=== PATIENT | female | born 1975 | race African-American/Black ===

== ENCOUNTER 2018-03-07 07:02 | Inpatient (IN) | payer MEDICAID ==
[~2018-03-07] VITALS: Ht 157.5 cm; Wt 86.6 kg
[2018-03-07 08:00] VITALS: BP 101/70
--- NOTE | 2018-03-07 08:03 | NUR ---
PAVING RAMMERMACHINIST APPRENTICE NOTES RECEIVED PT FROM [facility] IN STABLE CONDITION. PT TRANSPORTED VIA AMBULANCE. PT IS A/O X3. NO SOB OR ACUTE SIGNS OF DISTRESS NOTED. BILATERAL CHEST RISE AND FALL NOTED. SHE DENIES ANY PAIN. WARD CATHETER NOTED TO BE DRAINING CLEAR, YELLOW URINE TO GRAVITY. IV TO LEFT AC NOTED TO BE PATENT AND INTACT. NO REDNESS OR SIGNS OF INFILTRATION NOTED. GTUBE NOTED AND PLACEMENT VERIFIED VIA AUSCULTATION. PT ORIENTED TO ROOM AND USE OF CALL LIGHT. BED IN LOW LOCKED POSITION, SIDE RAILS UP X3, CALL LIGHT WITHIN PT'S REACH. DR MARTINEZ NOTIFIED OF ADMISSION AND ORDERS. WILL BEGIN ADMISSION PROCESS AND SOFIA Addendum: 03/07/18 at 0813 by ELIZABETH MANJARREZ RN PT SR ON THE TELE MONITOR WITH A HR OF 95
[2018-03-07] MEDS ORDERED: LISI40TA4 GT (10:53)
[2018-03-07] MEDS ORDERED: HEPA50008 SQ (10:53)
[2018-03-07] MEDS ORDERED: AMLO5TAB7 GT (10:53)
[2018-03-07] MEDS ORDERED: LABE300T2 GT (10:53)
[2018-03-07] MEDS ORDERED: ATOR40TA GT (10:53)
[2018-03-07] MEDS ORDERED: FERR325T23 GT (10:53)
[2018-03-07] MEDS ORDERED: IPRA3AMP23 IH (10:53)
[2018-03-07] MEDS ORDERED: HYDR-4077 GT (10:53)
[2018-03-07] MEDS ORDERED: METO5SOL20 GT (10:53)
[2018-03-07] MEDS ORDERED: LEVE500S9 GT (10:53)
[2018-03-07] MEDS ORDERED: LACT-209 GT (10:53)
[2018-03-07] MEDS ORDERED: ALPR0.5T8 GT (10:53)
[2018-03-07] MEDS ORDERED: MAG HYDROX/AL HYDROX/SIMETH 30 ML UDC PO PRN (11:30)
[2018-03-07] MEDS ORDERED: Z GUARD REMEDY 2 OZ OINT TP PRN (11:30)
[2018-03-07] MEDS ORDERED: ACETAMINOPHEN 325 MG TABLET PO PRN (11:30)
[2018-03-07] MEDS ORDERED: METOCLOPRAMIDE HCL 5 MG/5 ML UDC PO PRN (11:30)
[2018-03-07] MEDS ORDERED: ZOLPIDEM TARTRATE 5 MG TABLET PO PRN (11:30)
[2018-03-07] MEDS ORDERED: ONDANSETRON HCL/PF 4 MG/2 ML VIAL IVP PRN (11:30)
[2018-03-07] MEDS: LABETALOL HCL (100MG) 100 MG TABLET PO SCH ×2 (12:00→17:33)
[2018-03-07] MEDS: hydrALAZINE HCL 50 MG TABLET GT SCH ×3 (12:34→21:00)
[2018-03-07] MEDS: LEVETIRACETAM SOL (5 ML) 100 MG/ML UDC PO SCH ×2 (12:42→22:20)
[2018-03-07] MEDS: IV NS 0.9% 1,000 ML IV PRN (12:42)
[2018-03-07] MEDS: HEPARIN SODIUM, PORCINE 5000 UNITS/1 ML VIAL SQ SCH ×2 (12:48→22:22)
[2018-03-07] MEDS: CEFTRIAXONE 1 G in IV D5W 50 ML IV SCH (14:27)
[2018-03-07 16:00] VITALS: BP 117/72
[2018-03-07] MEDS ORDERED: INSULIN REGULAR, HUMAN 100 UNIT/ML 3 ML VIAL SQ PRN (16:00)
[2018-03-07] MEDS ORDERED: DEXTROSE 50%-WATER 50 ML DISP.SYRIN IV PRN (16:00)
[2018-03-07] MEDS: JEVITY 1.2 CAL 1,000 ML BOTTLE GT PRN (16:29)
[2018-03-07] MEDS: BLOOD SUGAR DIAGNOSTIC 1 EACH STRIP IN SCH (17:30)
--- NOTE | 2018-03-07 18:21 | NUR ---
MS RN CLOSING NOTES PT REMAINS STABLE SINCE ADMISSION. VITALS STABLE THROUGHOUT SHIFT. ALL NEEDS ANTICIPATED FOR AND MET. ALL DUE MEDS GIVEN. IV REMAINS PATENT AND INTACT. PT CONTINUE TO TOLERATE NS INFUSION WELL. PT TOLERATING GTUBE FEEDINGS WELL AND ORDERED RATE. NO RESIDUALS ASPIRATED AT THIS TIME. WARD CATHETER REMAINS PATENT AND INTACT., PT HAD A TOTAL OF 1200CC THROUGHOUT SHIFT. PRN CARE RENDERED. PT REPOSITIONED AND TURNED PER PROTOCOL. SAFETY MEASURES REMAIN IN PLACE. WILL ENDORSE TO NIGHTSHIFT NURSE FOR SOFIA
[2018-03-07] MEDS: HYDROCODONE/APAP 5/325MG 1 EACH TABLET PO PRN (18:48)
--- NOTE | 2018-03-07 19:25 | NUR ---
MS RN OPENING NOTES PT REMAINS STABLE SINCE ADMISSION. VITALS STABLE THROUGHOUT SHIFT. ALL NEEDS ANTICIPATED FOR AND MET. ALL DUE MEDS GIVEN. IV REMAINS PATENT AND INTACT. PT CONTINUE TO TOLERATE NS INFUSION WELL. PT TOLERATING GTUBE FEEDINGS WELL AND ORDERED RATE. NO RESIDUALS ASPIRATED AT THIS TIME. WARD CATHETER REMAINS PATENT AND INTACT., PT HAD A TOTAL OF 1200CC THROUGHOUT SHIFT. PRN CARE RENDERED. PT REPOSITIONED AND TURNED PER PROTOCOL. SAFETY MEASURES REMAIN IN PLACE. WILL ENDORSE TO NIGHTSAZFT NURSE FOR SOFIA RECEIVED PT IN BED, AWAKE, A/O X 4 ,WITH EPISODES OF FORGETFULNESS, VERBALLY RESPONSIVE. NO DISTRESS. NO SOB NOTED. RESPIRATION IS EVEN AND UNLABORED. IV SITE ON LAC INTACT AND PATENT, NO S/S OF INFILTRATION NOTED. IVF INFUSING WELL. GT IS INTACT AND PATENT, NOTED WITH 40CC RESIDUAL. GTF ALLEY WELL. ASPIRATION PRECAUTION OBSERVED. FC IS INTACT AND PATENT, DRAINING WELL WITH YELLOW URINE, NO HEMATURIA NOTED. NO S/S OF HYPO/ HYPERGLYCEMIA NOTED. ALL NEEDS ATTENDED AND MET. KEPT COMFORTABLE. CALL LIGHT WITHIN REACH.SAFETY AND SEIZURE PRECAUTION OBSERVED. WILL CONT TO MONITOR. Addendum: 03/07/18 at 2305 by HILLARY ORELLANA RN INCORRECT DOCUMENTATION
[2018-03-07 20:00] VITALS: BP 114/65
[2018-03-07 20:13] LABS: APPEARANCE,URINE SL CLOUDY (CLEAR); BILIRUBIN,URINE NEGATIVE (NEGATIVE); BLOOD, URINE NEGATIVE Ery/uL (NEGATIVE); COLOR,URINE YELLOW (YELLOW); KETONES,URINE NEGATIVE (NEGATIVE); LEUKOCYTE ESTERASE ,URINE 1+ (NEGATIVE); NITRITE, URINE NEGATIVE (NEGATIVE); PH,URINE 6.5 (5.0-8.0); PROTEIN,URINE NEGATIVE (NEGATIVE); UGLUCOSE NEGATIVE (NEGATIVE); UROBILINOGEN,URINE 0.2 EU/dL (0.2)
[2018-03-07 20:17] LABS: BACTERIA,URINE Rare /HPF (None Seen); RBC,URINE 0-2 /HPF (0-2); SQUAMOUS EPITHELIAL CELL,UR Few /HPF (None Seen)
--- NOTE | 2018-03-07 22:00 | NUR ---
RELAYED ABNORMAL PRELIMINARY BLOOD CULTURE RESULT TO DR. MARTINEZ , PT IS ON ROCEPHIN IV, WITH NNO AT THIS TIME.
[2018-03-07] MEDS: ALPRAZOLAM 0.5 MG TABLET GT SCH (22:20)
[2018-03-07] MEDS: ATORVASTATIN 40 MG TABLET GT SCH (22:20)
[2018-03-08] MEDS: BLOOD SUGAR DIAGNOSTIC 1 EACH STRIP IN SCH ×5 (00:11→23:40)
[2018-03-08] MEDS: IV NS 0.9% 1,000 ML IV PRN ×2 (04:42→17:30)
[2018-03-08] MEDS: LABETALOL HCL (100MG) 100 MG TABLET PO SCH ×5 (05:48→23:44)
--- NOTE | 2018-03-08 06:40 | NUR ---
MS RN CLOSING NOTES PT IN BED, RESTING COMFORTABLY IN BED, AROUSES EASILY, A/O X 4 ,WITH EPISODES OF FORGETFULNESS, VERBALLY RESPONSIVE. NO DISTRESS. NO SOB NOTED. RESPIRATION IS EVEN AND UNLABORED. IV SITE ON LAC INTACT AND PATENT, NO S/S OF INFILTRATION NOTED. IVF INFUSING WELL. GT IS INTACT AND PATENT, GTF ALLEY WELL. ASPIRATION PRECAUTION OBSERVED. FC IS INTACT AND PATENT, DRAINING WELL WITH YELLOW URINE, NO HEMATURIA NOTED. NO S/S OF HYPO/ HYPERGLYCEMIA NOTED. ALL NEEDS ATTENDED AND MET. KEPT COMFORTABLE. CALL LIGHT WITHIN REACH.SAFETY AND SEIZURE PRECAUTION OBSERVED. WILL ENDORSE TO NEXT SHIFT ACCORDINGLY FOR SOFIA.
[2018-03-08 07:30] LABS: BASOPHILS % (AUTO) 0.6 % (0.0-2.0); EOSINOPHILS % (AUTO) 3.7 % (0.0-6.0); HEMATOCRIT 31 % (33-45); HEMOGLOBIN 10.3 g/dL (11.5-14.8); LYMPHOCYTES # (AUTO) 1.9 /CMM (0.8-4.8); MEAN CORPUSCULAR HGB CONC 34 g/dl (31.0-36.0); MEAN CORPUSCULAR VOLUME 91 fL (82-100); MONOCYTES # (AUTO) 0.4 /CMM (0.1-1.30); MONOCYTES % (AUTO) 7.7 % (2.0-12.0); NEUTROPHILS # (AUTO) 2.6 /CMM (1.8-8.9); PLATELET COUNT (AUTO) 205 /CMM (150-450); RED BLOOD CELL COUNT(AUTO) 3.38 MIL/uL (4.0-5.2); WHITE BLOOD COUNT (AUTO) 5.2 K/uL (4.3-11.0)
[2018-03-08 07:42] LABS: CALCIUM, SERUM 9.6 mg/dL (8.5-10.1); CREATININE 0.9 mg/dL (0.6-1.3); MAGNESIUM 1.9 mg/dL (1.8-2.4); PHOSPHORUS 4.2 mg/dL (2.5-4.9); POTASSIUM 4.3 mmol/L (3.5-5.1)
--- NOTE | 2018-03-08 07:42 | NUR ---
MS VOGTDIESEL ENGINE ASSEMBLER NOTES RECEIVED PT FROM [facility] IN STABLE CONDITION. IS A/O X3 WITH PERIODS OF CONFUSION. NO SOB OR ACUTE SIGNS OF DISTRESS NOTED. BILATERAL CHEST RISE AND FALL NOTED. SHE DENIES ANY PAIN. WARD CATHETER NOTED TO BE DRAINING CLEAR, YELLOW URINE TO GRAVITY. IV TO LEFT AC NOTED TO BE PATENT AND INTACT. NO REDNESS OR SIGNS OF INFILTRATION NOTED. GTUBE NOTED AND PLACEMENT VERIFIED VIA AUSCULTATION. NO RESIDUALS ASPIRATED AT THIS TIME. PT TOLERATING FEEDING WELL @ 60ML/HR ORDERED. BED IN LOW LOCKED POSITION, SIDE RAILS UP X3, CALL LIGHT WITHIN PT'S REACH. DR MARTINEZ NOTIFIED OF ADMISSION AND ORDERS. WILL BEGIN ADMISSION PROCESS AND SOFIA Addendum: 03/08/18 at 1845 by ELIZABETH MANJARREZ RN * OPENING NOTES
[2018-03-08 08:00] VITALS: BP 119/77
[2018-03-08] MEDS: hydrALAZINE HCL 50 MG TABLET GT SCH ×4 (09:00→21:00)
[2018-03-08] MEDS: LISINOPRIL (20MG) 20 MG TABLET PO SCH (09:00)
[2018-03-08] MEDS: HEPARIN SODIUM, PORCINE 5000 UNITS/1 ML VIAL SQ SCH ×2 (09:10→21:35)
[2018-03-08] MEDS: AMLODIPINE BESYLATE 5 MG TABLET GT SCH (09:13)
[2018-03-08] MEDS: LEVETIRACETAM SOL (5 ML) 100 MG/ML UDC PO SCH ×2 (09:13→21:34)
[2018-03-08] MEDS: FERROUS SULFATE (325 MG) 325 MG/TAB TABLET GT SCH (09:13)
[2018-03-08] MEDS: CEFTRIAXONE 1 G in IV D5W 50 ML IV SCH (12:31)
[2018-03-08] MEDS: JEVITY 1.2 CAL 1,000 ML BOTTLE GT PRN (12:39)
[2018-03-08 16:00] VITALS: BP 128/60
[2018-03-08] MEDS: HYDROCODONE/APAP 5/325MG 1 EACH TABLET PO PRN (17:30)
--- NOTE | 2018-03-08 18:45 | NUR ---
MS RN CLOSING NOTES PT REMAINS STABLE. ALL NEEDS ANTICIPATED FOR AND MET. ALL DUE MEDS GIVEN. IV REMAINS PATENT AND INTACT. PT CONTINUES TO TOLERATE NS INFUSION WELL. PT TOLERATING GTUBE FEEDINGS WELL AND ORDERED RATE. NO RESIDUALS ASPIRATED AT THIS TIME. WARD CATHETER REMAINS PATENT AND INTACT., PT HAD A TOTAL OF 1600CC OUTPUT THROUGHOUT SHIFT. PRN CARE RENDERED. PT REPOSITIONED AND TURNED PER PROTOCOL. SAFETY MEASURES REMAIN IN PLACE. WILL ENDORSE TO NIGHTSHIFT NURSE FOR SOFIA
--- NOTE | 2018-03-08 19:10 | NUR ---
MS RN OPENING NOTES RECEIVED PT IN BED, AWAKE, A/O X 4 ,WITH EPISODES OF FORGETFULNESS, VERBALLY RESPONSIVE. NO DISTRESS. NO SOB NOTED. RESPIRATION IS EVEN AND UNLABORED. IV SITE ON LAC INTACT AND PATENT, NO S/S OF INFILTRATION NOTED. IVF INFUSING WELL. GT IS INTACT AND PATENT, NOTED WITH RESIDUAL OF 30 CC, GTF ALLEY WELL. ASPIRATION PRECAUTION OBSERVED. FC IS INTACT AND PATENT, DRAINING WELL WITH YELLOW URINE, FC SECURED WITH STAT LOCK. NO HEMATURIA NOTED. NO S/S OF HYPO/ HYPERGLYCEMIA NOTED. ALL NEEDS ATTENDED AND MET. KEPT COMFORTABLE. CALL LIGHT WITHIN REACH.SAFETY AND SEIZURE PRECAUTION OBSERVED. WILL CONT TO MONITOR.
[2018-03-08 20:00] VITALS: BP 116/66
[2018-03-08] MEDS: ALPRAZOLAM 0.5 MG TABLET GT SCH (21:34)
[2018-03-08] MEDS: ATORVASTATIN 40 MG TABLET GT SCH (21:34)
[2018-03-09] MEDS: HYDROCODONE/APAP 5/325MG 1 EACH TABLET PO PRN ×2 (04:58→11:58)
--- NOTE | 2018-03-09 04:58 | NUR ---
MS RN NOTES PAIN MANAGEMENT C/O PAIN VIA RIGHT LEG 5/10 ON PAIN SCALE,MEDICATED WITH NORCO 5/325MG,1 TAB GIVEN/GT.WILL MONITOR FOR RELIEF.
[2018-03-09] MEDS: BLOOD SUGAR DIAGNOSTIC 1 EACH STRIP IN SCH ×2 (05:26→12:04)
[2018-03-09] MEDS: LABETALOL HCL (100MG) 100 MG TABLET PO SCH ×2 (05:42→12:37)
[2018-03-09] MEDS: IV NS 0.9% 1,000 ML IV PRN (05:53)
--- NOTE | 2018-03-09 06:40 | NUR ---
MS RN CLOSING NOTES PT IN BED, ASLEEP AT THIS TIME, AROUSES EASILY, A/O X 4 ,WITH EPISODES OF FORGETFULNESS, VERBALLY RESPONSIVE. NO DISTRESS. NO SOB NOTED. RESPIRATION IS EVEN AND UNLABORED. IV SITE ON LAC INTACT AND PATENT, NO S/S OF INFILTRATION NOTED. IVF INFUSING WELL. GT IS INTACT AND PATENT, NOTED WITH RESIDUAL OF 30 CC, GTF ALLEY WELL. ASPIRATION PRECAUTION OBSERVED. FC IS INTACT AND PATENT, DRAINING WELL WITH YELLOW URINE, NO HEMATURIA NOTED. NO S/S OF HYPO/ HYPERGLYCEMIA NOTED. ALL NEEDS ATTENDED AND MET. KEPT COMFORTABLE. CALL LIGHT WITHIN REACH.SAFETY AND SEIZURE PRECAUTION OBSERVED. WILL ENDORSE TO NEXT SHIFT FOR SOFIA.
--- NOTE | 2018-03-09 07:20 | NUR ---
MS RN OPENING NOTES PATIENT RECEIVED ASLEEP IN BED, EASILY AROUSABLE. ON ROOM AIR, BREATHING EVEN AND UNLABORED. IV ACCESS ON LAC INTACT AND PATENT, IVF OF NS @ 75ML/HR INFUSING WELL, NO S/S OF INFILTRATIONS NOTED. G-TUBE IN PLACE AND PATENT WITH FEEDING OF JEVITY 1.2 @ 60ML/HR IN PROGRESS AND TOLERATING WELL. ASPIRATION PRECAUTIONS MAINTAINED. WARD INTACT AND PATENT, DRAINING CLEAR YELLOW URINE OUTPUT. ALL SAFETY MEASURES IN PLACE. BED IN LOW/LOCKED POSITION WITH SR UP X2. CALL LIGHT WITHIN REACH. WILL CONT TO MONITOR.
[2018-03-09] MEDS: FERROUS SULFATE (325 MG) 325 MG/TAB TABLET GT SCH (08:03)
[2018-03-09] MEDS: AMLODIPINE BESYLATE 5 MG TABLET GT SCH (08:03)
[2018-03-09] MEDS: LEVETIRACETAM SOL (5 ML) 100 MG/ML UDC PO SCH (08:04)
[2018-03-09] MEDS: LISINOPRIL (20MG) 20 MG TABLET PO SCH (08:04)
[2018-03-09] MEDS: HEPARIN SODIUM, PORCINE 5000 UNITS/1 ML VIAL SQ SCH (08:05)
[2018-03-09] MEDS: hydrALAZINE HCL 50 MG TABLET GT SCH ×2 (08:05→12:36)
[2018-03-09 08:31] VITALS: BP 122/71
[2018-03-09 08:35] LABS: BASOPHILS % (AUTO) 0.5 % (0.0-2.0); EOSINOPHILS % (AUTO) 2.9 % (0.0-6.0); HEMATOCRIT 30 % (33-45); HEMOGLOBIN 9.7 g/dL (11.5-14.8); LYMPHOCYTES # (AUTO) 2.1 /CMM (0.8-4.8); LYMPHOCYTES % (AUTO) 38.8 % (20.0-44.0); MEAN CORPUSCULAR HGB CONC 33 g/dl (31.0-36.0); MEAN CORPUSCULAR VOLUME 91 fL (82-100); MONOCYTES # (AUTO) 0.4 /CMM (0.1-1.30); MONOCYTES % (AUTO) 6.9 % (2.0-12.0); NEUTROPHILS # (AUTO) 2.7 /CMM (1.8-8.9); NEUTROPHILS % (AUTO) 50.9 % (43.0-81.0); PLATELET COUNT (AUTO) 208 /CMM (150-450); RED BLOOD CELL COUNT(AUTO) 3.24 MIL/uL (4.0-5.2); WHITE BLOOD COUNT (AUTO) 5.3 K/uL (4.3-11.0)
[2018-03-09 08:56] LABS: CALCIUM, SERUM 9.4 mg/dL (8.5-10.1); CREATININE 0.9 mg/dL (0.6-1.3); MAGNESIUM 1.6 mg/dL (1.8-2.4); PHOSPHORUS 4.7 mg/dL (2.5-4.9); POTASSIUM 4.5 mmol/L (3.5-5.1)
[2018-03-09] MEDS ORDERED: CEPH-570 PO (09:23)
[2018-03-09] MEDS ORDERED: MAGNESIUM OXIDE 400 MG TABLET PO ONE (09:30)
[2018-03-09] MEDS: JEVITY 1.2 CAL 1,000 ML BOTTLE GT PRN (11:30)
--- NOTE | 2018-03-09 12:05 | NUR ---
RN NOTES/PAIN MANAGEMENT PT C/O PAIN ON HER LEFT ARM WITH SCALE OF 6/10, PRN NORCO 5/325MG ADMINISTERED VIA GTUBE. WILL CONTINUE TO MONITOR
[2018-03-09 12:37] VITALS: BP 121/78
--- NOTE | 2018-03-09 12:55 | NUR ---
RN NOTES PATIENT FOR DISCHARGE TODAY. CALLED AND REPORT GIVEN TO SHAY FALCON OF [facility] AND SAID THAT PT WILL GO TO ROOM # 3. DAUGHTER CONNER CALLED AND INFORMED OF PT'S DISCHARGE TO [facility].
[2018-03-09] MEDS: CEFTRIAXONE 1 G in IV D5W 50 ML IV SCH (13:00)
--- NOTE | 2018-03-09 15:38 | NUR ---
RN DISCHARGED NOTES PATIENT DISCHARGED TO [facility] IN STABLE CONDITION. A/O X3, SAME ABLE TO VERBALIZED NEEDS WITH NO COMPLAINTS VOICED DURING DISCHARGED. ALL NEEDS AND CARE ATTENDED WELL. V/S TAKEN AND RECORDED. WARD CATHETER REMOVED A WHILE AGO AND PT NOTED VOIDING ON HER DIAPER. IV ACCESS ON LAC REMOVED WITH MINIMAL BLEEDING NOTED, PRESSURE GAUZED APPLIED. PHOTOS OF SKIN TAKEN AND FILED ON CHART. PT HAS NO BELONGINGS. PT REFUSED FLU AND PNA VACCINES DESPITE EXPLAINING RISKS AND BENEFITS. HEALTH TEACHINGS GIVEN AT PT AND VERBALIZED UNDERSTANDING. PT LEFT UNIT AT 1500 VIA GURNEY ACCOMPANIED BY 2 FIRER BISQUE KILN. CHARGE NURSE AWARE OF DISCHARGE.
== END 2018-03-09 15:00 | DRG 720 ==
LOC: TELE 07:02 → MED 12:49
DX: A41.9 Sepsis, unspecified organism (principal); N17.0 Acute kidney failure with tubular necrosis; R53.2 Functional quadriplegia; Z93.0 Tracheostomy status; R13.10 Dysphagia, unspecified; D63.8 Anemia in other chronic diseases classified elsewhere; E86.0 Dehydration; N39.0 Urinary tract infection, site not specified; I69.854 Hemiplegia and hemiparesis following other cerebrovascular disease affecting left non-dominant side; I12.9 Hypertensive chronic kidney disease with stage 1 through stage 4 chronic kidney disease, or unspecified chronic kidney disease; N18.9 Chronic kidney disease, unspecified; Z93.1 Gastrostomy status
CPT/HCPCS: 36415; 80048-TC; 80061-TC; 81000-TC; 82962-TC; 83735-TC; 84100-TC; 85025-TC; 87040-TC; 87081-TC; 87086-TC; A4606; J0696; J1644; J1815; J1953; J7030; J7060; J8597; Z7610